=== PATIENT | female | born 1925 | race Caucasian/White ===

== ENCOUNTER 2017-04-11 14:08 | Day surgery (SDC) | payer MEDICARE, BC ==
[~2017-04-11] VITALS: Ht 139.7 cm; Wt 42.8 kg
[~2017-04-11 14:08] MED LIST: ATACAND32 MG PO; CALCIUM & MAGNE1 CAP PO; LIBRIUM10 MG PO; OXYBUTYNIN10 MG PO; PREMARIN 1.251.25 MG PO; PRILOSEC 20MG20 MG PO; PROPOXYPHENE HC65 MG PO; PROVENTIL0.09 MG/A1 IH; THYROID; VITAMIN D2000 I1 PO; ZANTAC150 MG PO; [UNRECOGNIZED DRUG - OTHER] PO
[2017-04-11 15:14] VITALS: BP 230/83; PULSE 66; TEMP 97.9
[2017-04-11] MEDS ORDERED: ASPI325T6 PO (15:55)
[2017-04-11] MEDS ORDERED: ADVIL200 MG PO (15:56)
[2017-04-11] MEDS ORDERED: SLOW FE142 MG PO (15:59)
[2017-04-11] MEDS ORDERED: PRIL40 PO (16:00)
[2017-04-11] MEDS ORDERED: LIBRIUM 10M10 MG/CAP PO (16:00)
[2017-04-11] MEDS ORDERED: NTHROIDNT65 PO (16:01)
[2017-04-11] MEDS ORDERED: ATACAND32 MG PO (16:02)
[2017-04-11] MEDS ORDERED: DITROPAN XL10 MG PO (16:03)
[2017-04-11] MEDS ORDERED: CHLOR TRIMETON 44 MG PO (16:05)
[2017-04-11] MEDS ORDERED: IMODIUM 2MG CAPS2 MG PO (16:06)
[2017-04-11] MEDS ORDERED: PROBIOTIC FORMU1 CAP PO (16:06)
[2017-04-11] MEDS ORDERED: SYSTANE GEL EYE10 ML OP (16:07)
[2017-04-11 16:41] VITALS: BP 132/55; PULSE 85; TEMP 97.9
[2017-04-11 16:45] VITALS: BP 105/92; PULSE 87
[2017-04-11 17:00] VITALS: BP 173/70; PULSE 71
[2017-04-11 17:35] VITALS: BP 154/64; PULSE 78
== END 2017-04-11 17:25 | disposition home or self-care (01) ==
LOC: SDCO 14:08
DX: K21.0 Gastro-esophageal reflux disease with esophagitis (principal); K44.9 Diaphragmatic hernia without obstruction or gangrene; K22.70 Barrett's esophagus without dysplasia; J45.909 Unspecified asthma, uncomplicated; M19.90 Unspecified osteoarthritis, unspecified site; D64.9 Anemia, unspecified; Z90.49 Acquired absence of other specified parts of digestive tract; Z90.710 Acquired absence of both cervix and uterus; I10 Essential (primary) hypertension; K58.9 Irritable bowel syndrome, unspecified; E03.9 Hypothyroidism, unspecified; Z86.73 Personal history of transient ischemic attack (TIA), and cerebral infarction without residual deficits; M40.209 Unspecified kyphosis, site unspecified; Z86.010 Personal history of colon polyps
CPT/HCPCS: J0360; J7030